=== PATIENT | female | born 1995 | race Caucasian/White ===

== ENCOUNTER → 2017-03-13 | Outpatient (CLI) | payer BC | END | disposition home or self-care (01) | LOC: GMAB 10:48 | PROVIDERS: ATTEND Family Medicine | DX: E73.9 Lactose intolerance, unspecified (principal); R53.82 Chronic fatigue, unspecified ==

== ENCOUNTER → 2017-07-11 | Outpatient (CLI) | payer BC | END | disposition home or self-care (01) | LOC: LAB.O 09:24 | DX: Z79.899 Other long term (current) drug therapy (principal) ==

== ENCOUNTER → 2017-08-11 | Outpatient (CLI) | payer BC | END | disposition home or self-care (01) | LOC: LAB.O 11:14 | PROVIDERS: ATTEND Dermatology | DX: Z79.899 Other long term (current) drug therapy (principal) ==

== ENCOUNTER → 2017-09-08 | Outpatient (CLI) | payer BC | END | disposition home or self-care (01) | LOC: LAB.O 09:44 | PROVIDERS: ATTEND Dermatology | DX: Z79.899 Other long term (current) drug therapy (principal) ==

== ENCOUNTER → 2017-10-13 | Outpatient (CLI) | payer BC | LOC: LAB.O 13:24 | PROVIDERS: ATTEND Dermatology | DX: Z79.899 Other long term (current) drug therapy (principal) ==

== ENCOUNTER → 2017-10-14 | Outpatient (CLI) | payer BC | LOC: GMAB 17:49 | PROVIDERS: ATTEND Family Medicine | DX: M54.5 Low back pain (principal) ==

== ENCOUNTER 2018-11-26 20:14 | Emergency (ER) | payer BC ==
[2018-11-26] MEDS ORDERED: ACETAMINOPHEN-CAFF-BUTALBITAL 1 EA TAB PO ONE (20:33)
[2018-11-26] MEDS ORDERED: KETOROLAC TROMETHAMINE INJ 30 MG/ML VIAL IM ONE (20:33)
--- NOTE | 2018-11-26 22:23 | ED.PDOC ---
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 she does have a history of significant dysmenorrhea as well. sHe has gotten a little worse last few months that she has come off her Depo-Provera. No history of heavy bleeding. menstrual flow was not abnormally high today. No significant anemia history. She was feeling fine prior to this. It has been suspected in the past that she may have endometriosis. The patient is pleasant and cooperative though she is obviously in discomfort. Blood pressures running normal low for her. Timing/Duration: momentarily Severity: moderate Improving Factors: nothing Worsening Factors: nothing Associated Symptoms: denies symptoms Allergies/Adverse Reactions: Allergies NO KNOWN ALLERGY Allergy (Verified 11/26/18 21:51) Home Medications: Ambulatory Orders Rzpcighdexuqq-Qgwo-Qjkzwvvaae [Fioricet] 1 ea PO Q8H PRN #10 tab 11/26/18 Review of Systems - Review of Systems Constitutional: States: no symptoms reported EENTM: States: no symptoms reported Respiratory: States: no symptoms reported Cardiology: States: no symptoms reported Gastrointestinal/Abdominal: States: abdominal pain Genitourinary: States: see HPI Musculoskeletal: States: no symptoms reported Skin: States: no symptoms reported Neurological: States: other - near syncope Endocrine: States: no symptoms reported All other Systems: No Change from Baseline Past Medical History (General) - Patient Medical History Hx Seizures: No Hx Stroke: No Hx Dementia: No Hx Asthma: No Hx of COPD: No Hx Cardiac Disorders: No Hx Congestive Heart Failure: No Hx Pacemaker: No Hx Hypertension: No Hx Thyroid Disease: No Hx Diabetes: No Hx Gastroesophageal Reflux: No Hx Renal Disease: No Hx Cancer: No Hx of HIV: No Hx Hepatitis C: No Hx MRSA: No Surgical History: appendectomy - Vaccination History Hx Tetanus, Diphtheria Vaccination: No Hx Influenza Vaccination: No Hx Pneumococcal Vaccination: No Immunizations Up to Date: No - Social History Hx Tobacco Use: Yes Hx Alcohol Use: Yes - Female History Patient is a Female of Child Bearing Age (10 -59 yrs old): Yes Hx Last Menstrual Period: 11/24/18 Patient : No Family Medical History - Family History Mother Family History: Unknown Physical Exam - Physical Exam General Appearance: Alert, Other - ncomfortable Eye Exam: bilateral normal Ears, Nose, Throat: hearing grossly normal, normal pharynx Neck: full range of motion, supple Respiratory: lungs clear, normal breath sounds, no respiratory distress, no accessory muscle use Cardiovascular/Chest: normal peripheral pulses, regular rate, rhythm, no edema Peripheral Pulses: radial,right: 2+, radial,left: 2+ Gastrointestinal/Abdominal: soft, other - mild lower abdominal discomfort palpation. No rebound or peritoneal signs. Rectal Exam: deferred Back Exam: no CVA tenderness, no vertebral tenderness Extremity: non-tender, normal inspection, no pedal edema, normal capillary refill Neurologic: cabin service agent II-XII nml as tested, alert, normal mood/affect, oriented x 3 Skin Exam: normal color Comments: Vital Signs - 24 hr 11/26/18 11/26/18 11/26/18 20:20 21:15 22:05 Temperature 98.1 F 98.1 F Pulse Rate [ 60 78 64 left] Respiratory 20 20 20 Rate Blood Pressure 107/66 90/59 92/55 [left] O2 Sat by Pulse 99 100 100 Oximetry Progress - Progress Progress: 11/26/18 22:24 the patient's a 23-year-old female presenting to the emergency room secondary to severe dysmenorrhea and a near syncopal episode associated with it. The patient does have some mild dehydration and does need to increase her fluid intake to help prevent recurrence. Additionally she should talk with her optical engineering technician about an evaluation for possible endometriosis and additional hormonal control to reduce dysmenorrhea. For now the patient will be written for a short prescription of Fioricet for as needed use. ER warnings were given. follow up with PCP or optical engineering technician in the coming weeks.the patient is feeling significantly better at this time. 11/26/18 22:27 - Results/Orders Results/Orders: Laboratory Tests 11/26/18 11/26/18 21:40 21:40 Urine Color Dk yellow H Urine Appearance Sl cloudy Urine pH 7.0 Ur Specific [place] 1.020 Urine Protein 30 Urine Glucose (UA) Negative Urine Ketones 15 H Urine Blood Large H Urine Nitrite Negative Urine Bilirubin Negative Urine Urobilinogen 0.2 Ur Leukocyte Esterase Negative Urine RBC 20-30 H Urine WBC 1-3 Ur Epithelial Cells 1-3 Urine Bacteria 1+ Urine Mucus Moderate Urine HCG, Qual Negative Departure - Departure Clinical Impression: Dysmenorrhea, Near syncope, Mild dehydration Disposition: Discharge to Home or Self Care Condition: Fair Departure Forms: ED Discharge - Pt. Copy, Patient Portal Self Enrollment Instructions: Menstrual Cramps (DC), Near Fainting (DC) Diet: regular diet - Increase fluid intake Activity: increase activity as tolerated Referrals: JOHN PINEDA MD [Primary Care Provider] - 1-2 Weeks Prescriptions: Apunteaszcriv-Ztas-Eunritwyap [Fioricet] 1 ea PO Q8H PRN #10 tab PRN Reason: Pain Home Medications: Ambulatory Orders Hgclxrpgiqppv-Hivo-Zvqgvozdjr [Fioricet] 1 ea PO Q8H PRN #10 tab 11/26/18 Additional Instructions: the patient's a 23-year-old female presenting to the emergency room secondary to severe dysmenorrhea and a near syncopal episode associated with it. The patient does have some mild dehydration and does need to increase her fluid inta ke to help prevent recurrence. Additionally she should talk with her optical engineering technician about an evaluation for possible endometriosis and additional hormonal control to reduce dysmenorrhea. the patient is feeling better at this time. For now the patient will be written for a short prescription of Fioricet for as needed use. ER warnings were given. follow up with PCP or optical engineering technician in the coming weeks.
[2018-11-26 22:41] VITALS: BP 102/56; TEMP 98.2; O2SAT 97
== END 2018-11-26 22:28 | disposition home or self-care (01) ==
LOC: ER 20:14
DX: N94.6 Dysmenorrhea, unspecified (principal); R55 Syncope and collapse; E86.0 Dehydration; Z87.891 Personal history of nicotine dependence
CPT/HCPCS: 81001; 81025; J1885

== ENCOUNTER → 2020-04-11 | Outpatient (CLI) | payer BC | END | disposition home or self-care (01) | LOC: GMAE 14:22 | PROVIDERS: ATTEND Family Medicine | DX: N39.0 Urinary tract infection, site not specified (principal) ==

== ENCOUNTER → 2020-04-12 | Outpatient (CLI) | payer BC | END | disposition home or self-care (01) | LOC: GMAE 14:38 | PROVIDERS: ATTEND Family Medicine | DX: R70.0 Elevated erythrocyte sedimentation rate (principal) ==

== ENCOUNTER 2020-05-23 18:10 | Emergency (ER) | payer BC ==
[2020-05-23 18:24] VITALS: TEMP 97.6
[2020-05-23] MEDS ORDERED: ONDANSETRON INJ 4 MG/2 ML VIAL IV ONE ×2 (18:54→20:15)
[2020-05-23] MEDS ORDERED: SODIUM CHLORIDE 0.9% 1000ML 1,000 ML IVS ONE (18:54)
[2020-05-23] MEDS ORDERED: PROMETHAZINE HCL INJ 12.5 MG in SODIUM CHLORIDE 0.9% 50ML 50 ML IVPB ONE (20:20)
[2020-05-23] MEDS ORDERED: ALUM & MAG HYDROX-SIMETHICONE 30 ML, LIDOCAINE VISCOUS 2% 15 ML PO ONE ×2 (20:35)
--- NOTE | 2020-05-23 20:35 | ED.PDOC ---
History of Present Illness - General Chief Complaint: GI Problem Stated Complaint: vomiting Time Seen by Provider: 05/23/20 18:33 Information Source: patient Exam Limitations: no limitations - History of Present Illness Initial Comments: C/O N/V, STARTING THIS MORNING. PT HAD ENDOSCOPY (EGD) AT 11 AM TODAY FOR H/O GERD (TAKES OMEPRAZOLE). N/V STARTED THIS MORNING PRIOR TO THE EGD, SO IT IS NOT A RESULT OF THE EGD; RATHER IS COINCIDENTAL TIMING. SHE DENIES ANY ABDOMINAL PAIN. Abdominal Pain Onset Location: other - NO PAIN. Pain Radiation: no radiation Worsening Factors: eating Associated Symptoms: nausea/vomiting Review of Systems - Review of Systems Constitutional: Denies: chills, fever EENTM: States: no symptoms reported Respiratory: States: no symptoms reported Cardiology: States: no symptoms reported Gastrointestinal/Abdominal: States: nausea, vomiting. Denies: abdominal pain, constipation, diarrhea Genitourinary: States: no symptoms reported Musculoskeletal: States: no symptoms reported Skin: States: no symptoms reported Neurological: States: no symptoms reported Endocrine: States: no symptoms reported Hematologic/Lymphatic: States: no symptoms reported All other Systems: Reviewed and Negative Past Medical History (General) - Patient Medical History Hx Seizures: No Hx Stroke: No Hx Dementia: No Hx Asthma: No Hx of COPD: No Hx Cardiac Disorders: No Hx Congestive Heart Failure: No Hx Pacemaker: No Hx Hypertension: No Hx Thyroid Disease: No Hx Diabetes: No Hx Gastroesophageal Reflux: Yes Hx Renal Disease: No Hx Cancer: No Hx of HIV: No Hx Hepatitis C: No Hx MRSA: No Surgical History: appendectomy - Vaccination History Hx Tetanus, Diphtheria Vaccination: No Hx Influenza Vaccination: Yes - 2019 Hx Pneumococcal Vaccination: No - Social History Hx Tobacco Use: No Hx Alcohol Use: Yes - Female History Patient is a Female of Child Bearing Age (10 -59 yrs old): Yes Hx Last Menstrual Period: 11/24/18 Patient : No Family Medical History - Family History Mother Family History: Unknown Physical Exam - Physical Exam General Appearance: Alert, Obvious distress Eyes, Ears, Nose, Throat Exam: PERRL/EOMI, normal ENT inspection Neck: full range of motion, normal inspection Respiratory: lungs clear, no respiratory distress Cardiovascular/Chest: regular rate, rhythm, no murmur Peripheral Pulses: No deficit Gastrointestinal/Abdominal: soft, no organomegaly, no pulsatile mass, other - MILDLY TTP IN EPIGASTRIC; MORE OF A CRAMPING THAN JOVANY PAIN. NO G/R. NOT A SURGICAL ABDOMEN. Rectal Exam: deferred Back Exam: normal inspection, no CVA tenderness Extremity: normal range of motion, normal inspection Neurologic: no motor/sensory deficits, alert, normal mood/affect Skin Exam: normal color, warm/dry Lymphatic: no adenopathy Progress - Results/Orders Results/Orders: CBC ELEV WBC (12) AND NEUTS. CMP NONCONTRIBUTORY. LIPASE/AMYLASE NEG. N/V (NO ABD PAIN), NEUTROPHILIC LEUKOCYTOSIS. DX ACUTE VIRAL GASTROENTERITIS X 1 DAY (PT FELT NL YESTERDAY). FOOD POISIONING ALSO ON THE DDX. MILD DEHYDRATION FROM THE EMESIS. GAVE 1L NS BOLUS. OUTPT SUPPORTIVE CARE VIA ANTIEMETICS AND TINCTURE OF TIME. PT TOOK AN ANTIEMETIC AT HOME (PT UNSURE WHICH ONE), WHICH DIDN'T HELP. ZOFRAN IV IN THE ER DID NOT HELP BUT THE PHENERGAN DID, THUS I WILL RX PHENERGAN ELIXIR. SAFE FOR DC TO HOME. F/U WITH GI DR. RE: EGD RESULTS AND THE N/V IF NOT IMPROVING. Departure - Departure Clinical Impression: Viral gastroenteritis, Neutrophilic leukocytosis, Mild dehydration Nausea & vomiting Qualifiers: Vomiting type: unspecified Vomiting Intractability: non-intractable Qualified Code(s): R11.2 - Nausea with vomiting, unspecified Disposition: Discharge to Home or Self Care Condition: Good Departure Forms: ED Discharge - Pt. Copy, Patient Portal Self Enrollment Instructions: Viral Gastroenteritis, Adult (DC) Diet: bland diet Activity: increase activity as tolerated Referrals: JOHN PINEDA MD [Primary Care Provider] - 1-2 Weeks Prescriptions: Promethazine Syr 6.25 mg/5 ml [Phenergan Syrup 6.25 mg/5 ml] 10 ml PO Q6HR PRN #200 ml PRN Reason: Nausea Home Medications: Ambulatory Orders Omeprazole 40 mg PO DAILY 05/23/20 Promethazine Syr 6.25 mg/5 ml [Phenergan Syrup 6.25 mg/5 ml] 10 ml PO Q6HR PRN #200 ml 05/23/20 Additional Instructions: Please see your GI doctor regarding the EGD endoscopy results and for the nausea and vomiting if it doesn't start improving over this week. Please return to the ER if your symptoms worsen.
[2020-05-23 21:07] VITALS: BP 107/66; O2SAT 98
== END 2020-05-23 21:30 | disposition home or self-care (01) ==
LOC: ER 18:10
DX: A08.4 Viral intestinal infection, unspecified (principal); E86.0 Dehydration; D72.828 Other elevated white blood cell count; K21.9 Gastro-esophageal reflux disease without esophagitis
CPT/HCPCS: 36415; 80053; 82150; 83690; 85025; A4216; J2405; J2550; J7030

== ENCOUNTER 2020-07-25 00:04 | Emergency (ER) | payer BC ==
[2020-07-25] MEDS ORDERED: PROMETHAZINE HCL INJ 12.5 MG in SODIUM CHLORIDE 0.9% 50ML 50 ML IVPB ONE (00:38)
[2020-07-25] MEDS ORDERED: SODIUM CHLORIDE 0.9% 1000ML 1,000 ML IVS ONE (00:38)
[2020-07-25] MEDS ORDERED: KETOROLAC TROMETHAMINE INJ 30 MG/ML VIAL IV ONE (00:39)
--- NOTE | 2020-07-25 00:52 | ED.PDOC ---
History of Present Illness - General Chief Complaint: GI Problem Stated Complaint: nausea bodyaches Time Seen by Provider: 07/25/20 00:33 - History of Present Illness Initial Comments: PATIENT PRESENTS WITH NAUSEA, DIFFUSE MYALGIAS, ABD PAIN, SYMPTOMS ONSET X 1 DAY. DENIES F/C. NO IMPROVEMENT WITH PHENERGAN, SHE HAS HX OF ENDOMETRIOSIS AND HAS HAD SIMILAR SYMPTOMS A RESULT OF IT, ONSET OF MENSES YESTERDAY COINCIDED WITH ONSET OF SYMPTOMS. Abdominal Pain Onset Location: suprapubic Pain Radiation: no radiation Quality: severe, cramping Improving Factors: nothing Associated Symptoms: nausea/vomiting Review of Systems - Review of Systems Constitutional: States: no symptoms reported EENTM: States: no symptoms reported. Denies: throat pain Respiratory: States: no symptoms reported Cardiology: States: no symptoms reported Gastrointestinal/Abdominal: States: abdominal pain, nausea, vomiting Musculoskeletal: States: no symptoms reported Skin: States: no symptoms reported Neurological: States: no symptoms reported Endocrine: States: no symptoms reported Past Medical History (General) - Patient Medical History Hx Seizures: No Hx Stroke: No Hx Dementia: No Hx Asthma: No Hx of COPD: No Hx Cardiac Disorders: No Hx Congestive Heart Failure: No Hx Pacemaker: No Hx Hypertension: No Hx Thyroid Disease: No Hx Diabetes: No Hx Gastroesophageal Reflux: Yes Hx Renal Disease: No Hx Cancer: No Hx of HIV: No Hx Hepatitis C: No Hx MRSA: No Surgical History: appendectomy - Vaccination History Hx Tetanus, Diphtheria Vaccination: No Hx Influenza Vaccination: No Hx Pneumococcal Vaccination: No - Social History Hx Tobacco Use: Yes - vapes Hx Alcohol Use: Yes - occ - Female History Hx Last Menstrual Period: 07/24/20 Patient : No Family Medical History - Family History Mother Family History: Unknown Physical Exam - Physical Exam General Appearance: Alert, Anxious, Ill Appearing, Restless, Well Developed, Well Groomed, Well Hydrated, Well Nourished Eyes, Ears, Nose, Throat Exam: PERRL/EOMI Neck: non-tender, full range of motion, supple, normal inspection Respiratory: chest non-tender, lungs clear, normal breath sounds, no respiratory distress Cardiovascular/Chest: normal peripheral pulses, regular rate, rhythm, no edema, no gallop Gastrointestinal/Abdominal: normal bowel sounds, soft, tenderness - MILD DIFFUSE Extremity: normal range of motion, non-tender, normal inspection Neurologic: no motor/sensory deficits, alert, normal mood/affect, oriented x 3 Skin Exam: normal color, warm/dry Progress - Progress Progress: 07/25/20 02:10 PATIENT WITH NO SYMPTOMS TO SUGGEST STREP. 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 NO SORE THROAT, NO FINDINGS IN PHARYNX ON ORAL EXAM. NO FEVER. NO YU. Departure - Departure Clinical Impression: Vomiting Qualifiers: Vomiting type: unspecified Vomiting Intractability: unspecified Nausea presence: with nausea Qualified Code(s): R11.2 - Nausea with vomiting, unspecified Nausea & vomiting Qualifiers: Vomiting type: unspecified Vomiting Intractability: unspecified Qualified Code(s): R11.2 - Nausea with vomiting, unspecified Disposition: Discharge to Home or Self Care Condition: Good Departure Forms: ED Discharge - Pt. Copy, Patient Portal Self Enrollment Referrals: JOHN PINEDA MD [Primary Care Provider] - 1-2 Weeks Prescriptions: Metoclopramide HCl [Reglan] 10 mg PO Q6H PRN #20 tab PRN Reason: Nausea Home Medications: Ambulatory Orders Omeprazole 40 mg PO DAILY 05/23/20 Promethazine Syr 6.25 mg/5 ml [Phenergan Syrup 6.25 mg/5 ml] 10 ml PO Q6HR PRN #200 ml 05/23/20 Metoclopramide HCl [Reglan] 10 mg PO Q6H PRN #20 tab 07/25/20 Additional Instructions: PLEASE CONTACT YOUR PCP OFFICE AND GET AN ORDER FOR AN OUTPATIENT GALLBLADDER SONOGRAM KIMMY. AVOID MARIJUANA USE, IT CAN ACTUALLY MAKE THESE SYMPTOMS WORSE.
[2020-07-25] MEDS ORDERED: ONDANSETRON INJ 4 MG/2 ML VIAL IV ONE (01:58)
[2020-07-25] MEDS ORDERED: METOCLOPRAMIDE HCL INJ 10 MG/2 ML VIAL IV ONE (02:02)
[2020-07-25] MEDS ORDERED: ONDANSETRON INJ 4 MG/2 ML VIAL ONE (02:02)
[2020-07-25] MEDS ORDERED: HALOPERIDOL LACTATE INJ 5 MG/ML VIAL IV ONE (02:04)
[2020-07-25] MEDS ORDERED: METOCLOPRAMIDE HCL INJ 10 MG/2 ML VIAL ONE (02:14)
[2020-07-25 02:35] VITALS: BP 88/50; TEMP 97.9; O2SAT 98
== END 2020-07-25 02:44 | disposition home or self-care (01) ==
LOC: ER 00:04
DX: R11.2 Nausea with vomiting, unspecified (principal); F12.90 Cannabis use, unspecified, uncomplicated; K21.9 Gastro-esophageal reflux disease without esophagitis; Z90.49 Acquired absence of other specified parts of digestive tract; Z87.891 Personal history of nicotine dependence; Z20.828 Contact with and (suspected) exposure to other viral communicable diseases
CPT/HCPCS: 80053; 80307; 81001; 83690; 84703; 85025; 87502; 87635; 87880; A4216; J1630; J1885; J2060; J2405; J2550; J7030

== ENCOUNTER 2020-07-26 07:51 | Day surgery (SDC) | payer BC ==
[~2020-07-26 07:51] MED LIST: DEXAMETHASONE INJ 10 MG/ML VIAL ONE; MAGNESIUM SULFATE INJ 1 GM/2 ML VIAL ONE; PROPOFOL 200 MG/20 ML VIAL IV ONE
[2020-07-26] MEDS ORDERED: HALOPERIDOL LACTATE INJ 5 MG/ML VIAL IM ONE (08:35)
[2020-07-26] MEDS ORDERED: LACTATED RINGERS 1,000 ML IVS ONE (09:07)
--- NOTE | 2020-07-26 10:05 | US ---
Procedure: US ABDOMEN LIMITED Exam Date: 07/26/2020 Ordering Provider: Girma Diehl Clinical Indication: RECURRENT NAUSEA, R/O GB DZ Comparison: 05/07/2009 CT abdomen Technique: Real-time ultrasonography was obtained over the right upper quadrant and medical customer service representative images were recorded. Findings: There are gallstones within the gallbladder lumen. There is gallbladder wall thickening and trace pericholecystic fluid. The common bile duct is normal in size measuring 4 mm. The liver is normal in size and contour. There is normal echogenicity throughout the liver. There is no hepatic mass. There is no intrahepatic ductal dilatation. Visualized pancreas, aorta and IVC are unremarkable. No hydronephrosis in the right kidney. There is no ascites. Impression: 1. Cholelithiasis with findings suspicious for acute cholecystitis. Electronically signed by: Daryl Wilhelm MD 07/26/2020 10:03 AM [facility]
[2020-07-26] MEDS ORDERED: LACTATED RINGERS 1,000 ML ONE (10:39)
[2020-07-26] MEDS ORDERED: SODIUM CHLORIDE 0.9% 1000ML 1,000 ML IVS PRN (10:41)
[2020-07-26] MEDS ORDERED: SCOPOLAMINE PATCH 1.5MG 1 EA TD ONE (11:23)
[2020-07-26] MEDS ORDERED: MIDAZOLAM INJ 2 MG/2 ML VIAL ONE (11:33)
[2020-07-26] MEDS ORDERED: BUPIVACAINE 0.5% W/EPI 30 ML VIAL INJ ONE (11:46)
[2020-07-26] MEDS ORDERED: fentaNYL CITRATE INJ 50 MCG/ML 2 ML AMP ONE ×2 (12:27→12:47)
[2020-07-26] MEDS ORDERED: DEXMEDETOMIDINE HCL 200 MCG/2 ML INJ IV ONE (12:47)
[2020-07-26] MEDS ORDERED: ROCURONIUM BROMIDE 10 MG/ML VIAL ONE (12:47)
[2020-07-26] MEDS ORDERED: SUGAMMADEX SODIUM 200 MG/2 ML VIAL IV ONE (12:47)
--- NOTE | 2020-07-26 13:12 | HP ---
REASON FOR ADMISSION: Acute cholecystitis. HISTORY OF PRESENT ILLNESS: This is a 24-year-old woman with a history of intermittent abdominal pain, a known history of gastroesophageal reflux disease who apparently had an esophageal dilation in the past who presented with more severe episode of right upper quadrant pain with nausea, no vomiting, typically postprandial. She does not have a history of jaundice or acholic stools. PAST MEDICAL HISTORY: Denies. PAST SURGICAL HISTORY: 1. Dilation as above. 2. Appendectomy. FAMILY HISTORY: Noncontributory. SOCIAL HISTORY: The patient denies any drugs, significant alcohol or tobacco use. ALLERGIES: HYDROCODONE, UNKNOWN IF CODEINE IS A PROBLEM. PHYSICAL EXAMINATION: VITAL SIGNS: Afebrile. Vital signs are normal. GENERAL: The patient is alert and oriented, in no distress, in mild pain at this moment. HEENT: Normocephalic, atraumatic. Pupils equal and reactive. Sclerae anicteric. Oral mucosa is moist. NECK: No lymphadenopathy. CHEST: Clear and equal bilaterally. No wheezing or crackles. HEART: Regular rate and rhythm. ABDOMEN: Flat and soft. Right upper quadrant tenderness. No evidence of diffuse rebound. No CVA tenderness. EXTREMITIES: No cyanosis, clubbing or edema. NEUROLOGIC: Sensation is grossly intact, as is all movement. LABORATORY: White blood cell count 11, hematocrit 38, platelet count 236. Liver function tests are essentially normal as is her BMP. Beta HCG is negative. Urinalysis with no evidence of acute infection. RADIOLOGY: I reviewed the ultrasound films and confirmed gallstones and some slight gallbladder wall thickening consistent with cholecystitis. IMPRESSION: 1. Acute cholecystitis, otherwise healthy woman. PLAN: She has been consented for laparoscopic versus open cholecystectomy and we will take her to surgery today and likely will be able to be discharged postoperatively depending on intraoperative findings. #[id number] MTDD
--- NOTE | 2020-07-26 13:19 | OP ---
DATE OF PROCEDURE: 07/26/20 PREOPERATIVE DIAGNOSIS: 1. Acute cholecystitis. POSTOPERATIVE DIAGNOSIS: 1. Acute cholecystitis. PROCEDURE: 1. Laparoscopic cholecystectomy. SURGEON: Azar Catherine MD. ANESTHESIA: General and local. FINDINGS: Routine gallbladder overall. The duct and artery were clearly visualized through the triangle of Calot. COMPLICATIONS: None. ESTIMATED BLOOD LOSS: Minimal. SPECIMEN: Gallbladder. PLAN: Discharge. INDICATION: This is a 24-year-old woman who presented to the Emergency Department with moderate history of symptoms, now with more severe symptoms consistent with acute cholecystitis. Ultrasound confirmed the same. Her labs were normal. She had no contraindications for surgery. She was consented. PROCEDURE: The patient was brought to the Operating Suite in supine position. General anesthesia was induced. The patient was prepped and draped in sterile fashion. Marcaine 0.5% with epinephrine was used at all incision sites. While maintaining upward traction, a karl was made near the base of the umbilicus. Veress needle was introduced. There was free flow of fluid into the peritoneal cavity which was insufflated to an appropriate level with CO2 gas. The 5 mm trocar was placed followed by the camera. There was no evidence of bleeding or bowel injury. The patient was positioned and subxiphoid and lateral ports were placed. The gallbladder fundus was grasped and retracted superiorly and laterally. The infundibulum was grasped. The infundibular structures were dissected free. The duct and artery were clearly visualized through the triangle of Calot. The duct was triply ligated as was the artery. A small posterolateral branch was also clipped as it was oozing. A slight amount of bleeding from the mid lateral fossa was controlled with cautery. Otherwise, completely hemostatic. The gallbladder was then dissected off the fossa in toto and removed in the EndoCatch bag. The fossa was examined. It remained hemostatic under low pressure. The clips were intact. There was no bleeding or bile leakage. The subxiphoid fascia was then closed with 0 Vicryl using the suture passer. It was airtight and non-bleeding. The remaining trocars were removed and the abdomen was desufflated. The wounds were closed with Monocryl. Dressings were applied. The patient was awakened and taken to Recovery in stable condition to be discharged. #[id number] cc: Jeffery Porter MD [facility]
[2020-07-26] MEDS ORDERED: ACETAMINOPHEN W/COD #3 TAB 1 EA TAB ONE (13:40)
[2020-07-26] MEDS ORDERED: ACETAMINOPHEN W/COD #3 TAB 1 EA TAB PO ONE (13:40)
[2020-07-26 14:41] VITALS: BP 95/62; TEMP 98.1; O2SAT 98
--- NOTE | 2020-08-25 06:11 | ED.PDOC ---
History of Present Illness - General Chief Complaint: GI Problem Stated Complaint: n/v x3 days Time Seen by Provider: 07/26/20 08:20 Information Source: patient Exam Limitations: no limitations - History of Present Illness Initial Comments: PATIENT RETURNS TO ED WITH SOME COMPLAINTS SEEN HERE APPROXIMATELY 36 HOURS AGO, SHE HAS SINCE ALSO BEEN SEEN AT [facility] AND SENT HOME. PATIENT HAS RECURRENT DYSMENORRHEA FOR WHICH HER SISTER TREATS HER FOR. SHE ADMITS TO FREQUENT MARIJUANA USE. IT IS UNCLEAR IF THIS IS PART OF HER "TREATMENT". PATIENT'S SISTER IS THE PRIMARY SOURCE OF HISTORY SHE INSISTENT ON GIVING HISTORY FOR HER SISTER. Abdominal Pain Onset Location: epigastric Pain Radiation: no radiation Quality: mild Timing/Duration: 1/2 hour Review of Systems - Review of Systems Constitutional: States: no symptoms reported EENTM: States: no symptoms reported Respiratory: States: no symptoms reported Cardiology: States: no symptoms reported Gastrointestinal/Abdominal: States: see HPI Genitourinary: States: no symptoms reported Musculoskeletal: States: no symptoms reported Past Medical History (General) - Patient Medical History Hx Seizures: No Hx Stroke: No Hx Dementia: No Hx Asthma: No Hx of COPD: No Hx Cardiac Disorders: No Hx Congestive Heart Failure: No Hx Pacemaker: No Hx Hypertension: No Hx Thyroid Disease: No Hx Diabetes: No Hx Gastroesophageal Reflux: Yes Hx Renal Disease: No Hx Cancer: No Hx of HIV: No Hx Hepatitis C: No Hx MRSA: No Surgical History: appendectomy - Vaccination History Hx Tetanus, Diphtheria Vaccination: No Hx Influenza Vaccination: No Hx Pneumococcal Vaccination: No - Social History Hx Tobacco Use: Yes - vapes Hx Alcohol Use: Yes - occ - Activities of Daily Living Hospice Agency (if applicable):: None - Female History Hx Last Menstrual Period: 07/24/20 Patient : No Family Medical History - Family History Mother Family History: Unknown Physical Exam - Physical Exam General Appearance: Alert, Anxious, Other - SOMEWHAT EXPRESSIVE ABOUT HER SYMPTOMS Neck: supple Respiratory: chest non-tender, lungs clear, normal breath sounds Cardiovascular/Chest: normal peripheral pulses, regular rate, rhythm, no edema, no gallop Gastrointestinal/Abdominal: normal bowel sounds, non tender, soft, no organomegaly, no pulsatile mass Neurologic: system support specialist II-XII nml as tested, no motor/sensory deficits, alert, normal mood/affect, oriented x 3 Skin Exam: normal color, warm/dry, cyanosis Departure - Departure Clinical Impression: Cyclic vomiting syndrome, Marijuana use Time of Disposition: 10:00 Disposition: Discharge to Home or Self Care Condition: Good Diet: full liquid diet Home Medications: Ambulatory Orders Omeprazole 40 mg PO DAILY 05/23/20 Promethazine Syr 6.25 mg/5 ml [Phenergan Syrup 6.25 mg/5 ml] 10 ml PO Q6HR PRN #200 ml 05/23/20 Diclofenac Potassium 50 mg PO TID PRN #20 tab 07/25/20 Metoclopramide HCl [Reglan] 10 mg PO Q6H PRN #20 tab 07/25/20
== END 2020-07-26 14:25 | disposition home or self-care (01) ==
LOC: ER 07:51 → AMB 07:51 → ER 11:25 → EDSTATUS 11:29 → ER 14:25
PROVIDERS: ATTEND Emergency Medicine
DX: K81.2 Acute cholecystitis with chronic cholecystitis (principal); K21.9 Gastro-esophageal reflux disease without esophagitis; Z88.5 Allergy status to narcotic agent
CPT/HCPCS: 00790; 36415; 47562; 76775; 80053; 81001; 83605; 84703; 85025; 87635; J1100; J1630; J2060; J2250; J3010; J3475; J3490; J7120